=== PATIENT | female | born 1955 | race Native Hawaiian/Other Pacific Islander ===

== ENCOUNTER 2019-01-10 15:21 | Outpatient (CLI) | payer OTHER ==
[2019-01-10 16:03] LABS: PLATELET COUNT 139 K/uL (152-353)
[2019-01-10 16:25] LABS: POTASSIUM 3.7 mmol/L (3.6-5.2)
== END 2019-01-10 21:12 | disposition home or self-care (01) ==
LOC: LAB 15:21
PROVIDERS: Nurse Practitioner Family
DX: Z00.00 Encounter for general adult medical examination without abnormal findings (principal); F51.01 Primary insomnia; M54.5 Low back pain; F41.9 Anxiety disorder, unspecified; E78.5 Hyperlipidemia, unspecified; F32.9 Major depressive disorder, single episode, unspecified; G89.29 Other chronic pain; Z79.899 Other long term (current) drug therapy
CPT/HCPCS: 80053; 80061; 82306; 83036; 84439; 84443; 85027

== ENCOUNTER 2021-10-25 10:24 | Outpatient (CLI) | payer OTHER | END 2021-10-25 21:50 | disposition home or self-care (01) | LOC: RAD 10:24 | PROVIDERS: ATTEND Internal Medicine | DX: M51.36 Other intervertebral disc degeneration, lumbar region (principal) ==